=== PATIENT | male | born 1950 ===

== ENCOUNTER 2020-10-22 12:33 | Inpatient (IN) ==
[2020-10-22 13:56] LABS: Activated Partial Thrombo Time 33.4 seconds (26.0-38.0); Hematocrit 33 % (42-52); Hemoglobin 11.3 g/dL (14.0-18.0); INR 1.19 (0.82-1.09); Mean Corpuscular HGB Conc 34 g/dL (31-36); Mean Corpuscular Hemoglobin 33 pg (27-31); Mean Corpuscular Volume 97 fL (80-94); Mean Platelet Volume 9.2 fL (7.4-10.4); Platelet Count 223 10^3/uL (150-450); Red Blood Count 3.44 10^6 /uL (4.18-5.48); Red Cell Distribution Width 17 % (10-15); White Blood Count 9.2 10^3/uL (3.5-10.8)
[2020-10-22 14:02] LABS: Albumin 3.5 g/dL (3.2-5.2); Calcium 9.2 mg/dL (8.6-10.3); EGFR African American 95.7 (>60); EGFR Non-African American 79.1 (>60); Globulin 3.5 g/dL (2-4); Potassium 3.6 mmol/L (3.5-5.0)
[2020-10-22 14:05] LABS: Total Bilirubin 18.1 mg/dL (0.2-1.0)
[2020-10-22 14:27] LABS: ABS Neutrophils 7.7 10^3/ul (1.5-7.7)
[2020-10-22] MEDS ORDERED: ZOSYN 3.375 GM x ONE DOSE over 30 miuntes IV (14:30)
[2020-10-22] MEDS ORDERED: Propofol 10 MG/ML 20 ML BTL ONE (15:33)
[2020-10-22] MEDS ORDERED: Rocuronium 50 mg VIAL 10 mg/ml 5 ml VIAL (50 mg) ONE (15:33)
[2020-10-22] MEDS ORDERED: fentaNYL 100 mcg/2 ml 50 MCG/ML VIAL ONE ×2 (15:33→16:08)
[2020-10-22] MEDS ORDERED: Ondansetron 4 mg VIAL 2 MG/ML 2 ml VIAL ONE (16:27)
[2020-10-22] MEDS ORDERED: Ondansetron 4 mg VIAL 2 MG/ML 2 ml VIAL IV PRN (17:12)
[2020-10-22] MEDS ORDERED: NS 0.9% 1000 ml BAG 1,000 ML IV SCH (17:15)
[2020-10-22] MEDS ORDERED: Albuterol HFA INHALER 8 gm MDI INH PRN (20:11)
[2020-10-22] MEDS: fentaNYL PATCH 25 MCG/HR 1 PATCH TRANSDERM SCH (21:10)
[2020-10-22] MEDS: fentaNYL Patch Check Q Shift NOTE FOLLOW UP SCH (21:15)
[2020-10-23] MEDS: fentaNYL Patch Check Q Shift NOTE FOLLOW UP SCH ×3 (07:16→19:36)
[2020-10-23 09:58] LABS: Hematocrit 27 % (42-52); Hemoglobin 9.3 g/dL (14.0-18.0); Mean Corpuscular HGB Conc 34 g/dL (31-36); Mean Corpuscular Hemoglobin 33 pg (27-31); Mean Corpuscular Volume 98 fL (80-94); Mean Platelet Volume 9.4 fL (7.4-10.4); Platelet Count 181 10^3/uL (150-450); Red Blood Count 2.81 10^6 /uL (4.18-5.48); Red Cell Distribution Width 17 % (10-15); White Blood Count 8.5 10^3/uL (3.5-10.8)
[2020-10-23] MEDS ORDERED: Loperamide LIQ 2 MG/15 ML UDC PO ONE (10:00)
[2020-10-23 10:12] LABS: Albumin 2.7 g/dL (3.2-5.2); Albumin/Globulin Ratio 0.9 (1-3); Calcium 8.3 mg/dL (8.6-10.3); EGFR African American 156.6 (>60); EGFR Non-African American 129.4 (>60); Globulin 2.9 g/dL (2-4); Potassium 3.4 mmol/L (3.5-5.0); Total Protein 5.6 g/dL (6.4-8.9)
[2020-10-23 10:23] LABS: ABS Neutrophils 7.3 10^3/ul (1.5-7.7); Total Bilirubin 15.6 mg/dL (0.2-1.0)
[2020-10-23] MEDS ORDERED: Piperacillin/Tazobac ADVAN 3.375 GM in NS 0.9% 100 ml BAG 100 ML IV ONE (11:30)
[2020-10-23] MEDS ORDERED: Zosyn per Pharmacy NOTE FOLLOW UP SCH (12:00)
[2020-10-23] MEDS: ZOSYN 3.375 GM Q8H per EXTENDED INFUSION IV SCH (15:32)
[2020-10-24] MEDS: ZOSYN 3.375 GM Q8H per EXTENDED INFUSION IV SCH ×3 (00:05→15:49)
[2020-10-24 06:41] LABS: Hematocrit 28 % (42-52); Hemoglobin 9.4 g/dL (14.0-18.0); Mean Corpuscular HGB Conc 34 g/dL (31-36); Mean Corpuscular Hemoglobin 33 pg (27-31); Mean Corpuscular Volume 97 fL (80-94); Mean Platelet Volume 8.9 fL (7.4-10.4); Platelet Count 180 10^3/uL (150-450); Red Blood Count 2.87 10^6 /uL (4.18-5.48); Red Cell Distribution Width 17 % (10-15); White Blood Count 7.7 10^3/uL (3.5-10.8)
[2020-10-24] MEDS: fentaNYL Patch Check Q Shift NOTE FOLLOW UP SCH ×2 (06:52→18:54)
[2020-10-24 06:53] LABS: Albumin 2.5 g/dL (3.2-5.2); Calcium 7.9 mg/dL (8.6-10.3); Potassium 3.7 mmol/L (3.5-5.0)
[2020-10-24 06:55] LABS: Total Bilirubin 14.1 mg/dL (0.2-1.0)
[2020-10-24 06:59] LABS: Albumin/Globulin Ratio 1.1 (1-3); EGFR African American 165.8 (>60); Globulin 2.3 g/dL (2-4); Total Protein 4.8 g/dL (6.4-8.9)
[2020-10-24 07:25] LABS: ABS Eosinophils 0.1 10^3/ul (0-0.6)
[2020-10-24 07:26] LABS: ABS Neutrophils 5.8 10^3/ul (1.5-7.7)
[2020-10-24] MEDS: Morphine ORAL.SOLN 10 mg 2 mg/ml UDC 5 ml (10 mg) PO PRN (21:35)
[2020-10-25] MEDS: ZOSYN 3.375 GM Q8H per EXTENDED INFUSION IV SCH ×3 (01:01→16:45)
[2020-10-25 06:59] LABS: Polychromasia 1+
[2020-10-25 07:00] LABS: Albumin 2.7 g/dL (3.2-5.2); Albumin/Globulin Ratio 0.9 (1-3); Calcium 8.3 mg/dL (8.6-10.3); EGFR African American 172.5 (>60); EGFR Non-African American 142.6 (>60); Hematocrit 28 % (42-52); Hemoglobin 9.6 g/dL (14.0-18.0); Mean Corpuscular HGB Conc 34 g/dL (31-36); Mean Corpuscular Hemoglobin 33 pg (27-31); Mean Corpuscular Volume 97 fL (80-94); Mean Platelet Volume 8.9 fL (7.4-10.4); Platelet Count 197 10^3/uL (150-450); Potassium 3.6 mmol/L (3.5-5.0); Red Blood Count 2.88 10^6 /uL (4.18-5.48); Red Cell Distribution Width 17 % (10-15); Total Bilirubin 11.6 mg/dL (0.2-1.0); Total Protein 5.7 g/dL (6.4-8.9); White Blood Count 8.2 10^3/uL (3.5-10.8)
[2020-10-25 07:04] LABS: ABS Neutrophils 6.7 10^3/ul (1.5-7.7)
[2020-10-25] MEDS: fentaNYL Patch Check Q Shift NOTE FOLLOW UP SCH ×2 (07:06→19:37)
[2020-10-25] MEDS: Morphine ORAL.SOLN 10 mg 2 mg/ml UDC 5 ml (10 mg) PO PRN (08:23)
[2020-10-25] MEDS: fentaNYL PATCH 25 MCG/HR 1 PATCH TRANSDERM SCH (19:34)
[2020-10-26] MEDS: Morphine ORAL.SOLN 10 mg 2 mg/ml UDC 5 ml (10 mg) PO PRN ×2 (00:08→08:12)
[2020-10-26] MEDS: ZOSYN 3.375 GM Q8H per EXTENDED INFUSION IV SCH ×2 (00:08→08:07)
[2020-10-26 05:33] LABS: Albumin 2.7 g/dL (3.2-5.2); Albumin/Globulin Ratio 0.9 (1-3); Calcium 8.3 mg/dL (8.6-10.3); EGFR African American 200.7 (>60); EGFR Non-African American 165.9 (>60); Potassium 3.9 mmol/L (3.5-5.0); Total Bilirubin 9.8 mg/dL (0.2-1.0); Total Protein 5.7 g/dL (6.4-8.9)
[2020-10-26 06:14] LABS: Hematocrit 29 % (42-52); Hemoglobin 9.7 g/dL (14.0-18.0); Mean Corpuscular HGB Conc 34 g/dL (31-36); Mean Corpuscular Hemoglobin 33 pg (27-31); Mean Corpuscular Volume 97 fL (80-94); Mean Platelet Volume 8.7 fL (7.4-10.4); Platelet Count 219 10^3/uL (150-450); Red Blood Count 2.96 10^6 /uL (4.18-5.48); Red Cell Distribution Width 16 % (10-15); White Blood Count 7.3 10^3/uL (3.5-10.8)
[2020-10-26 06:16] LABS: Polychromasia 1+
[2020-10-26 06:17] LABS: Spherocytes 1+
[2020-10-26 06:18] LABS: ABS Neutrophils 5.8 10^3/ul (1.5-7.7)
[2020-10-26 06:19] LABS: ABS Basophils 0.1 10^3/ul (0-0.2)
[2020-10-26] MEDS: fentaNYL Patch Check Q Shift NOTE FOLLOW UP SCH (06:59)
[2020-10-26 07:52] VITALS: BP 136/71
== END 2020-10-26 13:03 | disposition hospice, home (50) ==
LOC: OR 12:33 → SSU 12:33
PROVIDERS: ADMIT Internal Medicine Gastroenterology; ATTEND Internal Medicine Hematology & Oncology